=== PATIENT | male | born 1955 | race Caucasian/White ===

== ENCOUNTER → 2019-01-13 | Outpatient (CLI) | payer OTHER | LOC: RADMRIMAIN 18:30 | PROVIDERS: ATTEND Internal Medicine | DX: Z53.9 Procedure and treatment not carried out, unspecified reason (principal) ==

== ENCOUNTER 2019-04-06 09:43 | Day surgery (SDC) | payer OTHER ==
[2019-04-04 11:16] VITALS: BMI 35.9
[~2019-04-06 09:43] MED LIST: LACTATED RINGERS 1,000 ML IV SCH
[2019-04-06 10:17] VITALS: TEMP 97.4
[2019-04-06] MEDS ORDERED: PROPOFOL 10 MG/ML 20 ML VIAL IV ONE (11:03)
[2019-04-06] MEDS ORDERED: SODIUM CHLORIDE 0.9% 500 ML 500 ML IV ONE (11:31)
--- NOTE | 2019-04-06 11:32 | P.PCN ---
Date of Procedure: 04/06/19 Procedure(s) Performed: BRIEF HISTORY: Patient is a 64-year-old pleasant at female, scheduled for an elective colonoscopy as a part of evaluation of positive cologuard. His last colonoscopy was 12 years ago. PROCEDURE PERFORMED: Colonoscopy. PREOPERATIVE DIAGNOSIS: Positive cologuard IV sedation per Anesthesia. PROCEDURE: After informed consent was obtained, the patient, was brought into the endoscopy unit. IV sedation was administered by Anesthesia under continuous monitoring. Digital rectal examination was normal. Initially the Olympus CF-160 flexible video colonoscope was then inserted in the rectum, gradually advanced into the cecum without any difficulty. Careful examination was performed as the scope was gradually being withdrawn. Ileocecal valve and the appendiceal orifice were visualized and appeared normal. Prep was poor and several areas of the colon. However Irrigation was performed. Visualized portions of the mucosa of the cecum, ascending colon, transverse colon, descending colon, sigmoid colon, and rectum appeared normal. Retroflexion was performed in the rectum and no lesions were seen. Scattered sigmoid diverticulosis seen. The patient tolerated the procedure well. IMPRESSION: Normal-appearing colon from rectum to cecum with no evidence of colitis or colo rectal neoplasia. Poor prep in several areas of the colon precluding adequate visualization RECOMMENDATIONS: Findings of this examination were discussed with the patientas well as his family. He was advised to have a repeat screening colonoscopy in 5 years from now because of the poor prep that was was encountered on this examination].
[2019-04-06 11:50] VITALS: BP 136/74; PULSE 57; RESP 16
== END 2019-04-06 12:50 | disposition home or self-care (01) ==
LOC: ORWHC2ENDO 09:43
PROVIDERS: ATTEND Internal Medicine Gastroenterology
DX: K57.30 Diverticulosis of large intestine without perforation or abscess without bleeding (principal); I10 Essential (primary) hypertension; F17.210 Nicotine dependence, cigarettes, uncomplicated; Z79.1 Long term (current) use of non-steroidal anti-inflammatories (NSAID); Z79.82 Long term (current) use of aspirin; Z79.899 Other long term (current) drug therapy; Z97.2 Presence of dental prosthetic device (complete) (partial)
CPT/HCPCS: 45378; J2704

== ENCOUNTER 2023-12-10 12:13 | Day surgery (SDC) | payer MEDICARE, OTHER ==
[~2023-12-10 12:13] MED LIST changes: -LACTATED RINGERS 1,000 ML IV SCH; +LIDOCAINE 1% (10MG/ML) FOR IV START INTRADERMA PRN
[2023-12-10] MEDS: LACTATED RINGERS 1,000 ML IV SCH (13:06)
[2023-12-10 13:29] VITALS: TEMP 97.8
[2023-12-10] MEDS ORDERED: PROPOFOL 10 MG/ML 20 ML VIAL IV ONE (13:43)
--- NOTE | 2023-12-10 14:04 | P.PCN ---
Date of Procedure: 12/10/23 Procedure(s) Performed: BRIEF HISTORY: Patient is a 68-year-old pleasant white man scheduled for an elective colonoscopy as a part of evaluation for history of colon polyps. Last colonoscopy was 5 years ago. PROCEDURE PERFORMED: Colonoscopy. PREOPERATIVE DIAGNOSIS: History of colon polyps. IV sedation per Anesthesia. PROCEDURE: After informed consent was obtained, the patient, was brought into the endoscopy unit. IV sedation was administered by Anesthesia under continuous monitoring. Digital rectal examination was normal. Initially the Olympus CF-160 flexible video colonoscope was then inserted in the rectum, gradually advanced into the cecum without any difficulty. Careful examination was performed as the scope was gradually being withdrawn. Ileocecal valve and the appendiceal orifice were visualized and appeared normal. Prep was excellent. Mucosa of the cecum, ascending colon, transverse colon, descending colon, sigmoid colon, and rectum appeared normal. Scattered sigmoid diverticulosis. Retroflexion was performed in the rectum and no lesions were seen. The patient tolerated the procedure well. IMPRESSION: Normal-appearing colon from rectum to cecum and no evidence of colorectal neoplasia. Scattered sigmoid diverticulosis. RECOMMENDATIONS: Findings of this examination were discussed with the patient as well as his family. He was advised to have agreed screening colonoscopy in 10 years..
[2023-12-10 14:15] VITALS: RESP 16
[2023-12-10 14:58] VITALS: BP 127/61; PULSE 65
== END 2023-12-10 15:10 ==
LOC: ORWHC2ENDO 12:13
PROVIDERS: ATTEND Internal Medicine Gastroenterology
DX: Z12.11 Encounter for screening for malignant neoplasm of colon (principal); K57.30 Diverticulosis of large intestine without perforation or abscess without bleeding; I10 Essential (primary) hypertension; F17.200 Nicotine dependence, unspecified, uncomplicated; N40.0 Benign prostatic hyperplasia without lower urinary tract symptoms; Z79.899 Other long term (current) drug therapy; Z85.118 Personal history of other malignant neoplasm of bronchus and lung; Z86.010 Personal history of colon polyps
CPT/HCPCS: G0105; J2704